=== PATIENT | female | born 1985 | race Two or more races ===

== ENCOUNTER 2018-02-19 17:52 | Emergency (ER) | payer OTHER ==
[~2018-02-19] VITALS: Ht 152.4 cm; Wt 65.8 kg
[2018-02-19] MEDS ORDERED: PANADOL EXTRA500 MG (18:44)
[2018-02-19] MEDS ORDERED: ADVIL100 M1 (18:44)
== END 2018-02-19 21:06 | disposition home or self-care (01) ==
LOC: ER 17:52
DX: S92.351A Displaced fracture of fifth metatarsal bone, right foot, initial encounter for closed fracture (principal); S80.11XA Contusion of right lower leg, initial encounter; W18.39XA Other fall on same level, initial encounter; Y93.89 Activity, other specified; Y92.091 Bathroom in other non-institutional residence as the place of occurrence of the external cause; Y99.8 Other external cause status

== ENCOUNTER 2018-02-26 23:39 | Emergency (ER) | payer OTHER ==
[~2018-02-26] VITALS: Ht 152.4 cm; Wt 63.5 kg
[~2018-02-26 23:39] MED LIST: ADVIL100 M1; PANADOL EXTRA500 MG
[2018-02-27] MEDS ORDERED: KETO10TA2 PO (03:36)
== END 2018-02-27 03:40 | disposition home or self-care (01) ==
LOC: ER 23:39
DX: S92.351S Displaced fracture of fifth metatarsal bone, right foot, sequela (principal); W18.39XS Other fall on same level, sequela; G89.11 Acute pain due to trauma

== ENCOUNTER 2020-09-02 18:08 | Emergency (ER) | payer OTHER ==
[~2020-09-02] VITALS: Ht 152.4 cm; Wt 68.0 kg
[~2020-09-02 18:08] MED LIST changes: +KETO10TA2 PO
== END 2020-09-02 21:26 | disposition home or self-care (01) ==
LOC: ER 18:08
DX: M54.2 Cervicalgia (principal); M75.51 Bursitis of right shoulder; M12.521 Traumatic arthropathy, right elbow; S13.8XXS Sprain of joints and ligaments of other parts of neck, sequela; S40.011S Contusion of right shoulder, sequela; S50.01XS Contusion of right elbow, sequela; S60.211S Contusion of right wrist, sequela; W22.8XXS Striking against or struck by other objects, sequela

== ENCOUNTER 2023-05-04 13:59 | Emergency (ER) | payer OTHER ==
[~2023-05-04] VITALS: Ht 152.4 cm; Wt 72.6 kg
== END 2023-05-04 18:03 | disposition home or self-care (01) ==
LOC: ER 13:59
DX: M54.89 Other dorsalgia (principal); M25.561 Pain in right knee; Z88.6 Allergy status to analgesic agent; M51.36 Other intervertebral disc degeneration, lumbar region